=== PATIENT | male | born 1975 | race Caucasian/White ===

== ENCOUNTER 2021-01-02 06:49 | Day surgery (SDC) | payer OTHER ==
[~2021-01-02] VITALS: Ht 180.3 cm; Wt 78.0 kg
[~2021-01-02 06:49] MED LIST: ACETAMINOPHEN 500 MG TABLET PO PRN; HYDROmorphone 2 MG/ML VIAL IVP PRN; IV RINGERS,LACTATED 1000ML 1,000 ML IV SCH; MORPHINE SULFATE 2 MG/ML VIAL. IVP PRN; PROCHLORPERAZINE 10 MG/2 ML VIAL. IVP PRN; ceFAZolin SODIUM IV Push 1 GM VIAL. IVP PRN; fentaNYL PF VIAL 100 MCG/2 ML VIAL IVP PRN
[2021-01-02] MEDS ORDERED: ceFAZolin SODIUM IV Push 1 GM VIAL. IVP ONE (07:00)
[2021-01-02] MEDS ORDERED: DOCU100C28 PO (07:02)
[2021-01-02] MEDS ORDERED: ROCURONIUM 50 MG/5 ML VIAL. ONE (07:05)
[2021-01-02] MEDS ORDERED: SUCCINYLCHOLINE 200 MG/10 ML VIAL. ONE (07:05)
[2021-01-02] MEDS ORDERED: PROPOFOL 10 MG/ML (20ML) VIAL. IV ONE (07:05)
[2021-01-02] MEDS ORDERED: LIDOCAINE 2% PF 5 ML VIAL. ONE (07:05)
[2021-01-02] MEDS ORDERED: fentaNYL PF VIAL 100 MCG/2 ML VIAL ONE ×2 (07:05→09:00)
[2021-01-02] MEDS ORDERED: MINERAL OIL for SURGERY 10 ML VIAL. MC ONE ×2 (07:06→08:05)
[2021-01-02] MEDS ORDERED: BUPIVACAINE-EPI 0.25% 30 ML VIAL KIT. ONE (07:06)
--- NOTE | 2021-01-02 07:41 | PDOC1 ---
History and Physical Date of Admission Date of Admission DATE: 01/02/21 TIME: 07:39 Identification/Chief Complaint Chief Complaint Right groin pain Source Source: Chart review, Patient History of Present Illness History of Present Illness 45-year-old male with complaints of right groin pain since February 2020 worse with activities. He denies having any previous abdominal surgery Past Medical History Cardiovascular: No pertinent hx Pulmonary: No pertinent hx GI: No pertinent hx Heme/Onc: No pertinent hx Hepatobiliary: No pertinent hx Psych: No pertinent hx Rheumatologic: No pertinent hx Infectious disease: No pertinent hx ENT: No pertinent hx Renal/: No pertinent hx Endocrine: No pertinent hx Dermatology: No pertinent hx Past Surgical History Past Surgical History: No pertinent history Family History Family History: Family History Unknown Social History Smoke: No ALCOHOL: none Drugs: None Current Medications Current Medications Current Medications Fentanyl Citrate (Fentanyl 2ml Vial) 25 mcg PRN Q5MIN PRN IVP MILD PAIN 1-3; S tart 01/02/21 at 06:00; Stop 01/03/21 at 05:59 Fentanyl Citrate (Fentanyl 2ml Vial) 50 mcg PRN Q5MIN PRN IVP MODERATE PAIN 4- 6; Start 01/02/21 at 06:00; Stop 01/03/21 at 05:59 Morphine Sulfate (Morphine Sulfate) 1 mg PRN Q10MIN PRN IVP SEVERE PAIN 7-10; Start 01/02/21 at 06:00; Stop 01/03/21 at 05:59 Ringer's Solution 1,000 ml @ 30 mls/hr Q24H IV ; Start 01/02/21 at 06:00; Stop 01/02/21 at 17:59 Hydromorphone HCl (Dilaudid) 0.5 mg PRN Q10MIN PRN IVP SEVERE PAIN 7-10, 2nd CHOICE; Start 01/02/21 at 06:00; Stop 01/03/21 at 05:59 Prochlorperazine Edisylate (Compazine) 5 mg PACU PRN PRN IVP NAUSEA, MRX1; Start 01/02/21 at 06:00; Stop 01/03/21 at 05:59 Acetaminophen (Tylenol) 1,000 mg 1X PREOP PRN PO PRIOR TO PROCEDURE Last administered on 01/02/21at 07:05; Start 01/02/21 at 06:00 Cefazolin Sodium (Ancef) 1 gm 1X PREOP PRN IVP PRIOR TO PROCEDURE; Start 01/02/21 at 06:00 Active Scripts Active Reported Docusate Sodium 100 Mg Capsule 1 Cap PO BID 7 Days Allergies Allergies: Coded Allergies: No Known Drug Allergies (Unverified , 01/01/21) ROS Genitourinary: YES Pain (Right groin) Physical Exam General: Alert, Oriented X3, Cooperative, No acute distress HEENT: Atraumatic, EOMI Lungs: Clear to auscultation, Normal air movement Heart: RRR, no murmurs Abdomen: Normal bowel sounds, Soft, No tenderness Male Genitals Exam: inguinal tenderness (Right inguinal bulge with tenderness) Extremities: No edema Skin: No significant lesion Neuro: Normal speech Psych/Mental Status: Mental status NL Vitals Vitals Vital Signs Date Time Temp Pulse Resp B/P (MAP) Pulse Ox O2 Delivery O2 Flow Rate FiO2 01/02/21 06:59 97.5 59 18 133/82 96 Room Air 97.5 VTE Prophylaxis Ordered VTE Prophylaxis Devices: Yes VTE Pharmacological Prophylaxi: Contraindicated Assessment/Plan Assessment/Plan Right inguinal hernia plan robotic assisted laparoscopic right inguinal hernia repair with mesh Justifications for Admission Other Justification CRISTIAN DOMINIQUE MD January 02, 2021 07:41
[2021-01-02] MEDS ORDERED: DEXAMETHASONE SOD PHOS 4 MG/ML VIAL ONE (08:00)
[2021-01-02] MEDS ORDERED: DESFLURANE 31 TO 60 MINUTES IH ONE (08:00)
[2021-01-02] MEDS ORDERED: ONDANSETRON PF 4 MG/2 ML VIAL. ONE ×2 (08:00→08:01)
[2021-01-02] MEDS ORDERED: NEOSTIGMINE METHYLSULFATE 5 MG/5 ML SYRINGE. ONE (08:01)
[2021-01-02] MEDS ORDERED: GLYCOPYRROLATE 1 MG/5 ML VIAL. ONE (08:01)
[2021-01-02] MEDS ORDERED: BUPIVACAINE-EPI 0.25% 30 ML VIAL KIT. INJ ONE (08:05)
--- NOTE | 2021-01-02 08:39 | PDOC4 ---
Operative Note Operative Note Date: January [id number] at 836 Preoperative diagnosis: Right inguinal hernia Postoperative diagnosis: Same Procedure: Robotic assisted laparoscopic right inguinal hernia repair with mesh Surgeon: Zac Specimen: None Dictation: Patient is a 45-year-old male with complaints of a painful bulge in his right groin. Procedure of robotic assisted laparoscopic right inguinal hernia repair with mesh was explained to the patient detail risk benefits were a lso discussed including bleeding infection injury to intra-abdominal contents possible necessitating further or open operations alternatives to this procedure also discussed with the patient who seemed to understand and gave both verbal and written consent to have the procedure performed. Patient was taken to the operating room placed in the supine position general anesthesia was initiated once patient was sleeping intubated his abdomen was prepped and draped usual sterile fashion using ChloraPrep he was placed in low lithotomy positioning. Area above his umbilicus was injected with quarter percent Marcaine with epinephrine incision made 11 blade scalpel and a varies needle was placed within the abdomen creating pneumoperitoneum once this complete 8 mm ventral port was placed and a camera was placed within the abdomen which was inspected as noted fairly large incarcerated right inguinal hernia. A 8 mm da Esvin port was placed in the right midabdomen and an 8 mm da Esvin port was placed in the left midabdomen under direct visualization. The da Esvin robot was brought and docked all port sites surgeon went to the robotic console using a grasper and Endo Carol scissors the peritoneum over the right side was incised and a window propagated inferiorly using blunt and sharp dissection reducing the hernia sac and contents. A large Bard 3D max mesh for the right side was placed over the hernia defect and the peritoneum was closed over the mesh with a running 2 OV lock absorbable suture. Suture was removed and the abdomen the da Esvin robot was undocked from all port sites pneumoperitoneum was reduced all ports were removed all port sites were closed with 4 subcuticular Monocryl Mastisol Steri- Strips and island dressings were applied. Patient was awakened and extubated in the operating room taken to recovery in stable condition all sponge instrument needle counts listed as correct estimated blood loss 5 mL CRISTIAN DOMINIQUE MD January 02, 2021 08:39
--- NOTE | 2021-01-02 08:41 | DISCH ---
DISCHARGE INSTRUCTIONS Condition on Discharge Condition on Discharge: Stable Activity After Discharge Activity Instructions for Disc: Avoid exertion Other activity instructions: No lifting more than 20 pounds for 2 weeks Diet after Discharge Diet after Discharge: Regular Wound Incision Care Other wound/incision instructi: Angelina shower in 24 hours Contacting the [facility] after DC Call your doctor for: If your condition worsens Follow-Up Follow up with: Dr. Dominique in 2 weeks CRISTIAN DOMINIQUE MD January 02, 2021 08:41
[2021-01-02] MEDS: fentaNYL PF VIAL 100 MCG/2 ML VIAL IVP PRN ×2 (09:02→09:08)
[2021-01-02] MEDS ORDERED: diphenhydrAMINE 50 MG/ML VIAL ONE (09:08)
[2021-01-02] MEDS ORDERED: diphenhydrAMINE 50 MG/ML VIAL IVP PRN (09:15)
[2021-01-02 09:19] VITALS: BP 144/78
== END 2021-01-02 09:38 | disposition home or self-care (01) ==
LOC: SURG 06:49
PROVIDERS: ATTEND Surgery
DX: K40.90 Unilateral inguinal hernia, without obstruction or gangrene, not specified as recurrent (principal); Z87.891 Personal history of nicotine dependence; Z79.899 Other long term (current) drug therapy; Z98.890 Other specified postprocedural states; Z88.6 Allergy status to analgesic agent
CPT/HCPCS: 49650; A4364; A4930; A6219; C1781; J0330; J0690; J1100; J1200; J2405; J2704; J2710; J3010; J3490; S2900; A4657